=== PATIENT | female | born 1985 | race Caucasian/White ===

== ENCOUNTER 2018-03-06 06:47 | Outpatient (CLI) | payer OTHER ==
--- NOTE | 2018-03-06 08:05 | ULT ---
PELVIC ULTRASOUND: HISTORY: Pelvic pain. FINDINGS: Real-time imaging of the pelvis was obtained both transabdominally as well as with an endovaginal pro be. This shows a uterus measuring 3.3 x 2.3 x 6.7 cm. The endometrium is in the 1-2 mm range. Both the right and left adnexa are fairly well visualized and normal in appearance. DOPPLER EVALUATION WITH SPECTRAL ANALYSIS: Normal flow is shown to the adnexa. No evidence of free fluid. IMPRESSION: Unremarkable pelvic ultrasound. POS: [facility]ED[facility]
== END 2018-03-06 06:48 | disposition home or self-care (01) ==
LOC: BICULT 06:47
PROVIDERS: ATTEND Specialist
DX: R10.2 Pelvic and perineal pain (principal)
CPT/HCPCS: 76856

== ENCOUNTER 2019-03-05 15:57 | Outpatient (CLI) | payer OTHER ==
--- NOTE | 2019-03-05 16:28 | RAD ---
CERVICAL SPINE THREE VIEWS: 03/05/19 HISTORY: Cervical spine pain. FINDINGS: Open mouth odontoid view demonstrates a normal appearing dens and C1-2 articulation. Cervical vertebr al body height and alignment appears normal on frontal and lateral imaging. No prevertebral soft tiss ue swelling. IMPRESSION: No acute findings. POS: OFF
== END 2019-03-05 15:58 | disposition home or self-care (01) ==
LOC: BICRAD 15:57
PROVIDERS: ATTEND Specialist
DX: M54.2 Cervicalgia (principal)
CPT/HCPCS: 72040

== ENCOUNTER 2019-04-21 05:02 | Emergency (ER) | payer OTHER ==
--- NOTE | 2019-04-21 12:03 | RAD ---
CHEST 1 VIEW: HISTORY: Syncope. Congenital aortic stenosis. COMPARISON: 04/13/2015. FINDINGS: Heart size is within normal limits. The lungs are clear. There is some tortuosity to the region of the aortic arch. IMPRESSION: No acute intrathoracic disease. POS: FABRIZIO
== END 2019-04-21 06:09 | disposition home or self-care (01) ==
LOC: ERS 05:02
DX: R55 Syncope and collapse (principal); Z79.899 Other long term (current) drug therapy
CPT/HCPCS: 36416; 71045; 93005

== ENCOUNTER 2019-05-17 08:04 | Outpatient (CLI) | payer OTHER ==
--- NOTE | 2019-05-17 09:37 | ULT ---
RENAL ULTRASOUND: HISTORY: Chronic renal disease. History of left nephrectomy. FINDINGS: Real-time imaging of the right and left kidneys was performed. The right kidney measures 13.2 cm in length. Cortex appears to be of slight increased echogenicity. The bladder region appears unremarka ble. DOPPLER EVALUATION WITH SPECTRAL ANALYSIS: The main renal artery velocity measurements are 148 cm/s. Aortic velocities were 124 cm/s. The resi stive index is calculated at 0.7. The 148 cm/s velocity measurements were obtained in the mid right renal artery. Proximally they were 99 cm/s, distally 56 cm/s. IMPRESSION: 1. Postop changes related to left nephrectomy related to donation related to a transplant by history . 2. Some mild increased echogenicity to a normal-sized right kidney. No signs of obstruction. 3. Velocity measurements in the mid right renal artery slightly elevated but aortic velocities are a lso somewhat elevated. No definitive stenosis. There is a dropoff between the mid to distal to righ t renal artery, but technically it is somewhat difficult to visualize these more distal portions of t he renal artery. If there is suspicion for renal artery hypertension, CT angiography may be of addit ional benefit. POS: [facility]
== END 2019-05-17 08:05 | disposition home or self-care (01) ==
LOC: SCSULT 08:04
PROVIDERS: ATTEND Internal Medicine Nephrology
DX: N18.2 Chronic kidney disease, stage 2 (mild) (principal); E03.9 Hypothyroidism, unspecified; K21.9 Gastro-esophageal reflux disease without esophagitis; M19.90 Unspecified osteoarthritis, unspecified site; R51 Headache; I35.0 Nonrheumatic aortic (valve) stenosis; Z90.5 Acquired absence of kidney
CPT/HCPCS: 76770; 93976